=== PATIENT | male | born 1965 | race Caucasian/White ===

== ENCOUNTER 2016-08-22 05:36 | Day surgery (SDC) | payer OTHER ==
[2016-08-22] VITALS (12 sets, daily range): BP systolic 98–145; BP diastolic 63–85; PULSE 59–77; RESP 12–18; O2SAT 96–100
[~2016-08-22] VITALS: Ht 167.6 cm; Wt 99.5 kg
[~2016-08-22 05:36] MED LIST: ALBU2.5V4 INHALATION; BUDE0.255 INHALATION; CLOB15CR3 TOP; FEXO180T85 PO; MONT10TA20 PO; TRIA10.8 NS
[2016-08-22] MEDS ORDERED: fentaNYL-PF 50 mCg/mL 2 mL Inj ONE (05:37)
[2016-08-22] MEDS ORDERED: Ondansetron 2 mg/mL 2 mL Inj ONE (05:37)
[2016-08-22] MEDS ORDERED: Propofol 10,000 mCg/mL 20 mL Inj ONE (05:37)
[2016-08-22] MEDS ORDERED: NAPR220C11 PO (05:51)
[2016-08-22] MEDS ORDERED: Lactated Ringer's 1,000 ML IV ONE (06:00)
[2016-08-22] MEDS ORDERED: CeFAZolin Inj 2 GM in IV Premix 1 EACH IV ONE (06:00)
--- NOTE | 2016-08-22 07:22 | PCM.HPANE ---
Patient Data Surgeon Admitting Provider: Attending Provider:Howard Vaughan MD Primary Care Physician:Xochilt Other Provider:Lashaun Obregon Anesthesia Reason for Visit Left Medial Meniscal Tear Ht/WT & BMI Height (Feet): 5 Height (Inches): 6.00 Weight (Kilograms): 99.5 Body Mass Index 35.00 Allergies Coded Allergies: No Known Allergies (Unverified , 08/16/16) Past Anesthesia History Anesthesia History: Denies:: Anesthesia Reactions Diabetes History Hx Diabetes?: No Medications Home Meds Incl Beta Jw: No Reported Medications Naproxen Sodium (Aleve)220 Mg [id number] Mg PO p 08/22/16 Triamcinolone Acetonide (Nasacort)10.8 Ml Spray10.8 Ml NS PRN congestion 08/16/16 Montelukast (Singulair)10 Mg [id number] Mg PO HS Ref 0 08/16/16 Clobetasol Propionate/Emoll (Clobetasol Emollient 0.05% Crm)15 Gm Cream..g.1 Appl TOP BID #1 TUBE 08/16/16 Budesonide Neb Soln 0.25 Mg/2 Ml Neb0.25 Mg INHALATION BID Ref 0 08/16/16 Fexofenadine (Jyoti Allergy)180 Mg Kaopol711 Mg PO DAILY PRN allergy sx Ref 0 08/16/16 Albuterol Neb Soln 2.5 Mg/3 Ml Vial.neb2.5 Mg INHALATION TID Ref 0 08/16/16 Discontinued Reported Medications Triamcinolone Acetonide 55 Mcg Spray16.9 Ml NS 08/16/16 Amoxicillin/Clav K 875-125 mg (Augmentin 875-125 mg)1 Each Tablet1 Tablet PO BID #20 TABLET Ref 0 08/16/16 History History of ENT Problems?: No HEENT History: Positive for:: Sinus Problem (chronic rhinitis) Denture Type: None Teeth Condition: Within Normal Limits Hx of Heart Problems?: No Cardiovascular History: Denies:: AICD Abdominal Aortic Aneurism Atrial Fibrillation Cardiac Surgery Chest Pain Congestive Heart Failure Coronary Artery Disease Edema Heart Murmur Hypertension Irregular Heartbeat Pacemaker Peripheral Vascular Rheumatic Fever Thrombophlebitis Valvular Heart Disease Hx of Respiratory Problem?: Yes Respiratory History: Positive for:: Asthma Use of Inhalers / NEBS Denies:: Oxygen Administration Use of C-PAP Machine Other History/Comment Well controlled asthma Hx Neurologic Problems?: No Hx of GI Problems?: No Hx of Problems?: No HX of Peritoneal Dialysis: No Hx Musculoskeletal Problems?: Yes Musculoskeletal History: Positive for:: Musculoskeletal Trauma (left knee meniscal tear-current admission problem, hx prior scope) Other History/Comment Torn meniscus of knee Hx of Psycho/Social Problems?: No Hx Surgeries?: Yes (knee arthroscopy) Hx Any Other Health Problems?: Yes Other History: Denies:: Cancer Thyroid Disease Hx Diabetes: No Hx Alcohol Use: NoHx Substance Use: NoHave You Smoked inLast 12 mo: No Stop/Bang S-Snoring: Do You Snore Loudly: No T-Tired: feel tired, fatigued: No O-Obsered: Observed not breath: No P-Blood Pressure: treated: No B- Body Mass Index > 35 kg/m2: No A- Age over 50: Yes N- Neck Large Circumference: No G- Gender Male: Yes SYEDA Total Score: 2 Risk Assessment Category Category 1A: Patient has history of documented sleep apnea, and HAS NOT received any narcotic, sedative or anesthesia administration during this stay. Category 1B: Patient has history of documented sleep apnea, and HAS received any narcotic , sedative or anesthesia administration during this stay Category 2: Patient has SUSPECTED Obstructive Sleep Apnea, and HAS received any narcotic , sedative or anesthesia administration during this stay. Category 3: Patient has SUSPECTED Obstructive Sleep Apnea and HAS NOT received narcotic, sedative or anesthesia administration during this stay. Category 4: Outpatient in Procedural Areas with known sleep apnea or who screen positive for High Risk via the STOP/BANG questionnaire. Exam Exam Vital Signs Vital Signs Date Time Temp Pulse Resp B/P Pulse Ox O2 Delivery O2 Flow Rate FiO2 08/22/16 06:13 36.3 77 18 145/85 97 Room Air General Appearance: Alert, Oriented X3, Cooperative HEENT/AIRWAY: MP 2 Lungs: Clear to Auscultation Heart: Exam Unremarkable Meds/Labs/Diagnostics Admission Meds Current Medications Lactated Ringer's (Lr) 1,000 ml @ 10 mls/hr Q24H ONCE IV Last administered on 08/22/16t 06:00; Start 08/22/16 at 06:00; Stop 08/23/16 at 05:59 Plan Impression Patient chart reviewed, patient interviewed and anesthestic plan with risks, benefits, and alternatives discussed, and informed consent obtained. ASA Physical Status: ASA2 Mod Systemic Disease Anesthetic Plan: GA Bene/Risks/Altern/Consents: Yes HP Complete Prior to Induction: Yes Santana Munoz MD Aug 22, 2016 07:22
[2016-08-22] MEDS ORDERED: Bupivacaine-MPF 0.25%/EPI 30 mL Inj INJ ONE (07:29)
[2016-08-22] MEDS ORDERED: Dexamethasone 4 mg/mL Inj INTRARTICU ONE (07:29)
[2016-08-22] MEDS ORDERED: oxyCODONE-Acetamin 5-325 mg Tablet PO PRN (07:40)
[2016-08-22] MEDS ORDERED: HYDROcodone-APAP 5-325 mg Tablet PO PRN (07:40)
[2016-08-22] MEDS ORDERED: hydrOXYzine Pamoate 25 mg Capsule PO PRN (07:40)
[2016-08-22] MEDS ORDERED: Lactated Ringer's 1,000 ML IV SCH (08:24)
[2016-08-22] MEDS ORDERED: Lactated Ringer's 500 ML IV PRN (08:24)
[2016-08-22] MEDS ORDERED: MetoCLOpramide 5 mg/mL 2 mL Inj IVPUSH PRN (08:25)
[2016-08-22] MEDS ORDERED: fentaNYL-PF 50 mCg/mL 2 mL Inj IVPUSH PRN (08:25)
[2016-08-22] MEDS ORDERED: Albuterol-Ipratropium 3 mL Inhalation Solution NEB PRN (08:25)
[2016-08-22] MEDS ORDERED: Ondansetron 2 mg/mL 2 mL Inj IVPUSH PRN (08:25)
[2016-08-22] MEDS ORDERED: Dexamethasone 4 mg/mL Inj IVPUSH PRN (08:25)
[2016-08-22] MEDS ORDERED: Phenylephrine 10,000 mCg/mL Inj IVPUSH PRN (08:25)
[2016-08-22] MEDS ORDERED: EPHEDrine Sulfate 50 mg/mL Inj IVPUSH PRN (08:25)
[2016-08-22] MEDS ORDERED: HYDROmorphone 1 mg/mL Inj IVPUSH PRN (08:25)
--- NOTE | 2016-08-22 08:27 | PCM.ANEP1 ---
Post Anesthesia Phase 1 PACU Phase 1 Assessment Vital Signs Vital Signs Date Time Temp Pulse Resp B/P Pulse Ox O2 Delivery O2 Flow Rate FiO2 08/22/16 08:20 36.4 68 15 105/69 98 Simple Mask 8 08/22/16 06:13 36.3 77 18 145/85 97 Room Air Anesthetic Administered: GA Level of Alertness: Sleeping, hard to arouse BOWERS's with Equal Strength: Yes Pain: No Nausea or Vomiting: No Cardiovascular Function and Hy: Yes Airway Device: Oralpharangeal Airway Oxygen Delivery: Simple Mask Lungs: Clear to Auscultation Dermatome Level: Full Sensation Complications: No Follow up Care: No Comments Somnulent, FM 02 comfortable Santana Munoz MD Aug 22, 2016 08:27
--- NOTE | 2016-08-23 07:52 | OP ---
[address] [address] OPERATIVE REPORT PATIENT: VINCENT VAUGHN : 1965 MR#: [id number] ADMIT: 08/22/2016 JOB ID: [id number] DATE OF SURGERY: 08/22/2016 PREOPERATIVE DIAGNOSIS(ES): Left knee internal derangement. POSTOPERATIVE DIAGNOSIS(ES): Medial meniscal tear with grade 2 chondromalacia of the medial femoral condyle. SURGEON: Howard Vaughan MD. 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 COMPLICATIONS: None. INDICATIONS: This gentleman has had persistent ongoing mechanical symptoms uncontrolled by conservative treatment. He elects to proceed with an arthroscopy after MRI documented medial meniscal pathology. He understands and accepts the limitations of the procedure, as well as potential for risks and complications, which include, but is not limited to, infection, thromboembolic, neurovascular events, as well as potential for progressive arthritis. Understanding these, he wishes to proceed. FINDINGS OF SURGERY: Diagnostic arthroscopy revealed minimal degenerative changes of the patellofemoral joint. A normal-appearing lateral compartment was encountered. Medial compartment revealed intact articular cartilage on the tibial plateau. Mild grade 2 chondromalacia of the femoral condyle. A complex posterior horn flap tear of the medial meniscus was encountered. PROCEDURE: Following the diagnostic arthroscopy, a combination of baskets and a meniscal resector blade was utilized to perform a partial medial menisectomy removing all unstable tissue. Very limited chondroplasty was performed removing only grossly loose flaps of articular cartilage off the medial femoral condyle. Wounds were irrigated with sterile irrigant. All debris was removed from the knee, lavage was drained from the knee. The portals were closed with nylon. A sterile dressing was applied. The patient was returned to the recovery room in stable condition. He tolerated the procedure well. There were no complications.
== END 2016-08-22 23:59 | disposition home or self-care (01) ==
LOC: SAS 05:36
PROVIDERS: ATTEND Orthopaedic Surgery
DX: M23.222 Derangement of posterior horn of medial meniscus due to old tear or injury, left knee (principal); M17.12 Unilateral primary osteoarthritis, left knee; M22.42 Chondromalacia patellae, left knee; J45.909 Unspecified asthma, uncomplicated; Z79.51 Long term (current) use of inhaled steroids
CPT/HCPCS: 29881; J0690; J1100; J1885; J2250; J2405; J3010; J7120